=== PATIENT | male | born 1955 | race Caucasian/White ===

== ENCOUNTER 2025-07-09 06:24 | Day surgery (SDC) | payer OTHER ==
--- NOTE | 2025-06-28 16:17 | RAD REPORT ---
EXAMINATION: TWO VIEW CHEST XR CLINICAL INDICATION: PRE OP TECHNIQUE: 2 views of the chest was performed. COMPARISON: No prior exam. FINDINGS: Small calcified granuloma is seen right lung. The lungs are otherwise grossly clear. The heart is nor mal in size. No displaced fractures evident. IMPRESSION: No acute or significant abnormalities.
[2025-06-28 16:22] LABS: Absolute Lymphocytes (CBC) 1.2 K/uL (0.7-4.9); Hematocrit 45.5 % (39.6-49.0); Hemoglobin 15.3 g/dL (13.6-17.9); MCH 29.8 pg (27.0-35.0); MCHC 33.6 g/dL (32.0-36.0); MCV 88.8 fL (80-100); MPV 8.4 fL (7.6-11.3); Nucleated RBC Absolute Count 0.0 (0-0); Nucleated Red Blood Cells % 0.1 % (0-0); RBC Red Blood Cell Count 5.13 M/uL (4.33-5.43); White Blood Count 7.60 thou/uL (4.3-10.9)
[2025-06-28 16:36] LABS: Anion Gap 7.8 mEq/L (5.0-15.0); BUN Blood Urea Nitrogen 18.0 mg/dL (7-18); Glucose Level 140.0 mg/dL (74-106); Potassium 3.8 mEq/L (3.5-5.1)
[2025-06-28 17:05] LABS: Sqamous Epithelial None Seen /HPF (None Seen); Urine Crystals Unidentified Few /HPF (None Seen); Urine Culture Reflex Order REFLEXED; Urine Microscopic Reflex YN ORDER UMIC; Urine WBC Clump Occasional /HPF (None Seen)
[2025-06-28 17:26] LABS: PT Prothrombin Time 12.4 SECONDS (10-13.0); Protime INR 1.1
[2025-07-09] MEDS: Ringers Lactate 1,000 ML IV ONE (07:02)
[2025-07-09] MEDS ORDERED: ONDANSETRON 4 MG/2 ML VIAL ONE (07:10)
[2025-07-09] MEDS ORDERED: FENTANYL CITR 100 MCG/2 ML ONE (07:11)
[2025-07-09] MEDS ORDERED: MIDAZOLAM HCL 2 MG/2 ML INJ ONE (07:12)
[2025-07-09] MEDS: AMPICILLIN SODIUM 2 GM/VIAL VIAL ONE (07:30)
[2025-07-09] MEDS: Gentamicin Inj 180 MG in NA CHLORIDE 0.9% 100 ML IV ONE (07:37)
[2025-07-09] MEDS ORDERED: GENTAMICIN 80 MG/100 ML BAG 80 MG/100 ML BAG IV ONE (07:45)
[2025-07-09] MEDS ORDERED: EPHEDRINE SULF 50 MG/ML VIAL ONE (07:49)
[2025-07-09] MEDS: CEFEPIME 1 GM/VIAL ONE (08:15)
[2025-07-09] MEDS ORDERED: LIDOCAINE 1% MPF 5 ML VIAL ONE (09:18)
[2025-07-09] MEDS ORDERED: DIAZEPAM 5 MG TABLET PO ONE (09:26)
[2025-07-09] MEDS ORDERED: OXYBUTYNIN ER 5 MG TAB PO ONE (09:26)
[2025-07-09] MEDS ORDERED: CODEINE 30MG/APAP 300MG TAB PO PRN (09:26)
[2025-07-09] MEDS ORDERED: PHENAZOPYRIDINE 100MG TAB PO ONE (09:26)
[2025-07-09] MEDS: MEPERIDINE HCL 25 MG/ML SYR ONE (09:30)
--- NOTE | 2025-07-09 09:48 | P.OP ---
Date of Service: 07/09/25 Preoperative diagnoses: Bladder calculus -3.6 cm BPH with obstruction Chronic urinary retention Chronic intermittent catheterization Postoperative diagnoses: Bladder calculus -3.6 cm BPH with obstruction Chronic urinary retention Chronic intermittent catheterization Principal procedures: Cystolitholapaxy using holmium laser and stone repairer screen crusher device Bipolar transurethral resection of the prostate Indication for procedure: 69-year-old gentleman presented to urology clinic with history of chronic urinary retention requiring CIC. He underwent cystoscopic evaluation revealing the presence of a large bladder calculus in the setting of chronic bacteriuria and history of gross hematuria. He was counseled on the need to remove the bladder calculus, but I could not without definitive urodynamics evaluation, determine whether he might be able to void independently were we to complete a simultaneous procedure to remove the prostatic urethral obstruction. So was his option of whether to proceed today with TURP in addition to cystolitholopaxy or just to proceed with cystolitholapaxy. I did preparole counseling aide him that were he to be unsuccessful in voiding, he may need to maintain a urethral catheter for as much as 2 weeks to allow healing of the fossa before resuming CIC. He elected to proceed with the addition of the bipolar TURP as scheduled. Procedure note: The patient was consented in the preoperative holding area before being transferred to the operative suite where general anesthesia was induced. He was given ampicillin 2 g and gentamicin 180 mg IV antimicrobial prophylaxis, and pneumoboots were provided for DVT prophylaxis. He was placed in the lithotomy position, padded and secured to the table appropriately. His genitalia was prepped with Hibiclens and he was draped in standard fashion. Using urethral sounds, his meatus and fossa navicularis was dilated from 22 [place] to 30 [place] with ease. I then utilized the visual obturator and the 26 [place] bipolar resectoscope sheath to traverse the urethra and navigate beyond the prostatic urethra where there was an intraluminally projecting median lobe observed ultimately to anterior the bladder. I decompressed his bladder of fluid and foul-smelling, anaerobic smelling urine. As a result, I irrigated the bladder to remove the cloudy debris, which was present despite the patient having been placed on Bactrim DS antimicrobial therapy days prior to the procedure today based on a preoperative urine culture that showed mixed cam[place] only. Ultimately, I elected to give him an additional broader spectrum antimicrobial via cefepime 1 g IV. Then, I switched the visual obturator for the Alvaran retractor, and utilized a 550 nm laser fiber at a power setting of 1.5 J and 40 Hz to begin to fragment the stone. Extensive fragmentation was performed removing essentially a relatively soft crust and laminar layers before getting to a harder core centrally. Once the majority of the stone had been disrupted, I then switched the laser fiber for a stone repairer screen crusher device and used that to break up the remaining fragments too large to pass through the resectoscope. Ilich evacuation was also used throughout this process frequently because of some instability of his bladder or bladder pressure that was observed making flow through the resectoscope more challenging. In the end, all of the bladder stone material had been removed and was sent for pathologic analysis. I then switched the Alvaran retractor for the bipolar working element and a thick loop. Taking care to avoid the ureteral orifice ease, which were very distal and essentially abutting the bladder neck, I marked the region distal to the ureteral orifices as the proximalmost extent of planned resection. I then resected the intraluminal component of the median lobe that was in between the ureteral orifices and then continue the resection down to the level of the verumontanum to create a smooth trough. I then continued the resection first into the left lateral lobe posteriorly and then laterally before extending it anteriorly at the bladder neck. Similarly, I resected the right posterior lateral wall of the prostate extending into the lateral wall and the anterior wall of the bladder neck. I then situated the scope at the verumontanum, which was very prominent, and assessed the degree of obstructing tissue in front of that. Interestingly, there was circumferential closure of the urethral lumen proximal to the verumontanum suggestive of ongoing prostatic urethral obstructio n from the anterior and lateral lobes. As a result, I began resection of this tissue in order to open the channel proximal to the level of the verumontanum and ensure its continuity through and into the bladder neck. Ilich evacuation of the prostate chips was performed and careful fulguration of all the bleeding vessels within the prostate channel was also performed to obtain adequate hemostasis. Then, with his bladder completely decompressed, I again surveyed the channel performing additional resection where necessary and hemostasis until I was satisfied that there was no ongoing oozing despite the bladder completely decompressed. At this point, I retrograde filled his bladder, remove the resectoscope, and then placed a 22 [place] three-way Gonzalez catheter via his urethra into his bladder with ease with 30 cc of sterile water placed into the balloon. He was then taken out of the lithotomy position, the catheter was placed to moderate traction, CBI was initiated, and he was then awakened from general anesthesia. He was transferred to the recovery room in good condition Complications: None Discharge disposition: We will plan standard post TURP pathway with voiding trial on Tuesday, but since the patient has a history of CIC, if he is unsuccessful at voiding, a 18 or 20 [place] urethral Gonzalez catheter should be reinserted for at least the next 7 to 10 days to allow healing of the prostate fossa before he should resume CIC. At that point, he should resume CIC using 18 [place] soft red rubber catheters as opposed to the hard typical intermittent catheters usually used. A coud tip would also be preferred.
[2025-07-09 13:08] VITALS: BP 128/63; TEMP 97.7; O2SAT 99
== END 2025-07-09 11:21 | disposition home or self-care (01) ==
LOC: OR 06:24
PROVIDERS: ATTEND Urology
PROC: 0TCB8ZZ Extirpation of Matter from Bladder, Via Natural or Artificial Opening Endoscopic (ICD-10-PCS; 2025-07-09)
PROC: 0VT08ZZ Resection of Prostate, Via Natural or Artificial Opening Endoscopic (ICD-10-PCS; principal; 2025-07-09 07:30)
DX: N40.1 Benign prostatic hyperplasia with lower urinary tract symptoms (principal); N21.0 Calculus in bladder; N13.8 Other obstructive and reflux uropathy; R33.8 Other retention of urine
CPT/HCPCS: 93005; 87088; 85025; 81001; 87086; 80048; 36415; 85610; 88300; 88305; 82360; 71046; 52601; 52318; J2704; J2003; J1580 ×2; J2250; J3010; J2175; J2405; J0290; J7120; J0692